=== PATIENT | female | born 1960 | race Caucasian/White ===

== ENCOUNTER → 2022-08-16 | Outpatient (CLI) | payer OTHER | LOC: LAB 11:15 → LAB SHORT 11:15 | DX: E11.9 Type 2 diabetes mellitus without complications (principal) | CPT/HCPCS: 82043 ==

== ENCOUNTER → 2025-08-09 | Outpatient (CLI) | payer MEDICARE ==
[2025-08-09 20:11] LABS: Creatinine, Urine Random 74.4 mg/dL (27.00-270.00); Microalb/Creat Ratio UR, Rand 282.258 mg/g (0.000-30.000); Microalbumin, Random Urine 210.0 mg/L (0.000-20.000)
== END ==
LOC: LAB 15:03 → LAB SHORT 15:03
PROVIDERS: Internal Medicine
DX: E11.69 Type 2 diabetes mellitus with other specified complication (principal)
CPT/HCPCS: 82043; 82570

== ENCOUNTER → 2025-08-15 | Outpatient (CLI) | payer MEDICARE | LOC: LAB SHORT 13:34 → LAB 13:34 | DX: N30.00 Acute cystitis without hematuria (principal) | CPT/HCPCS: 87077; 87086; 87186 ==